=== PATIENT | female | born 1980 | race Caucasian/White ===

== ENCOUNTER → 2022-05-16 | Outpatient (CLI) | payer BC ==
--- NOTE | 2022-05-16 10:57 | Diagnostic Imaging Report ---
PROCEDURE: MRI left joint lower extremity without contrast. TECHNIQUE: Multiplanar, multisequence non contrast-enhanced MRI of the left lower extremity was accomplished. INDICATION: Knee pain. FINDINGS: There is a small joint effusion present. 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 The cruciate and collateral ligaments are intact. Quadriceps tendon and patellar ligament appear normal. No evidence of meniscal tear. The patellofemoral joint shows mild full-thickness fissuring along the apex of the chondral cartilage of the patella. The marrow signal appears normal throughout. IMPRESSION: 1. 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 Moderate joint effusion. 2. 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 Dictated by: Dictated on workstation # [id number]
== END ==
LOC: RAD 08:00
PROVIDERS: ATTEND Registered Nurse
DX: M24.662 Ankylosis, left knee (principal); M22.42 Chondromalacia patellae, left knee
CPT/HCPCS: 73721